=== PATIENT | male | born 1950 | race Caucasian/White ===

== ENCOUNTER → 2018-11-11 | Outpatient (CLI) | payer MEDICARE, OTHER ==
[~2018-11-11] MED LIST: ACET1TAB12 PO; ALBU8HFA IH; ASPI-1484 PO; BUPR-93 PO; CLOP75TA3 PO; CODEINE PO; FERR-89 PO; LIDOCAINE 2% 5 ML JELLY TP ONE; LISI40TA4 PO; METO25 PO; METO50 PO; MULT1CAP42 PO; SIMV-260 PO; SIMV-261 PO; TAMS-1 PO; TYLENOL PO
[2018-11-11 09:15] VITALS: BP 140/83
== END | disposition home or self-care (01) ==
LOC: HBOWC 08:55
PROVIDERS: ATTEND Podiatrist
DX: S91.001D Unspecified open wound, right ankle, subsequent encounter (principal); X58.XXXD Exposure to other specified factors, subsequent encounter
CPT/HCPCS: 11042

== ENCOUNTER → 2018-11-17 | Outpatient (CLI) | payer MEDICARE, OTHER ==
[~2018-11-17] MED LIST changes: -ACET1TAB12 PO; -ASPI-1484 PO; -CODEINE PO; -LIDOCAINE 2% 5 ML JELLY TP ONE; -LISI40TA4 PO; -METO50 PO; -MULT1CAP42 PO; -SIMV-260 PO; -TYLENOL PO
[2018-11-17 10:42] VITALS: BP 116/59
== END | disposition home or self-care (01) ==
LOC: HBOWC 09:03
PROVIDERS: ATTEND Nurse Practitioner Adult Health
DX: I83.013 Varicose veins of right lower extremity with ulcer of ankle (principal); L97.312 Non-pressure chronic ulcer of right ankle with fat layer exposed; I87.2 Venous insufficiency (chronic) (peripheral); I83.92 Asymptomatic varicose veins of left lower extremity; L90.9 Atrophic disorder of skin, unspecified